=== PATIENT | female | born 1960 ===

== ENCOUNTER 2016-08-14 09:26 | Emergency (ER) | payer MEDICAID ==
[2016-08-14 09:32] VITALS: BMI 41.5
[2016-08-14 09:33] VITALS: RESP 18; TEMP 97.8; O2SAT 98
[2016-08-14] MEDS ORDERED: Lidocaine 2% Jelly (Uro-Jet) TOP ONE (10:02)
[2016-08-14] MEDS ORDERED: Lidocaine 2% Jelly (Uro-Jet) ONE (10:06)
--- NOTE | 2016-08-14 10:14 | C.PDOC ---
History Of Present Illness PERSIST HEMORRHOID PAIN X 1 MO. NO RELIEF W PROCTOSOL. DENIES CONSTIPATION BUT NOT USING LAXATIVE. NO BLEEDING, OTHER ASSOC SX EXAM MILD DIST NONTOXIC RECTAL +HEMORRHOIDS NONTHROMBOSED. NO EXCORIATION, ACTIVE BLEED MDM DILTIAZEM OINTMENT 5% CALLED IN TO [facility] ADVISED NEED Time Seen by Provider: 08/14/16 09:48 Chief Complaint (Nursing): Abnormal Skin Integrity History Per: Patient History/Exam Limitations: no limitations Onset/Duration Of Symptoms: Days Current Symptoms Are (Timing): Still Present Recent travel outside of the [place]: No Past Medical History Reviewed: Historical Data, Nursing Documentation, Vital Signs Vital Signs: Last Vital Signs Temp 97.8 F 08/14/16 09:32 Pulse 79 08/14/16 09:32 Resp 18 08/14/16 09:32 BP 121/82 08/14/16 09:32 Pulse Ox 98 08/14/16 10:17 - Medical History PMH: HTN Surgical History: Cholecystectomy Family History: States: Unknown Family Hx - Social History Hx Tobacco Use: Yes Hx Alcohol Use: No Hx Substance Use: No - Immunization History Hx Tetanus Toxoid Vaccination: No Hx Influenza Vaccination: No Hx Pneumococcal Vaccination: No Review Of Systems Except As Marked, All Systems Reviewed And Found Negative. Constitutional: Negative for: Fever, Chills Gastrointestinal: Positive for: Other ( +HEMORRHOIDS ). Negative for: Nausea, Vomiting, Abdominal Pain, Diarrhea, Constipation Skin: Negative for: Rash Physical Exam - Physical Exam Appears: Non-toxic, Other (MILD DISTRESS) Skin: Warm, Dry Head: Atraumatic, Normacephalic Chest: Symmetrical Cardiovascular: Rhythm Regular Respiratory: Normal Breath Sounds, No Rales, No Rhonchi, No Wheezing Gastrointestinal/Abdominal: Soft Rectal: Other (RECTAL +HEMORRHOIDS NONTHROMBOSED. NO EXCORIATION, ACTIVE BLEED) Back: Normal Inspection Extremity: Normal ROM Neurological/Psych: Oriented x3, Normal Speech, Normal Cognition ED Course And Treatment O2 Sat by Pulse Oximetry: 98 (RA) Pulse Ox Interpretation: Normal Medical Decision Making Medical Decision Making: DILTIAZEM OINTMENT 5% CALLED IN TO [facility]), ADVISED NEED Disposition Counseled Patient/Family Regarding: Diagnosis, Need For Followup, Rx Given - Disposition Referrals: Israel Amor MD [Primary Care Provider] - Jagdish Elder MD [Staff Provider] - Disposition: HOME/ ROUTINE Disposition Time: 10:16 Condition: IMPROVED Additional Instructions: USE OINTMENT PRESCRIBED. SEE YOUR PMD AND/OR SURGEON FOR FURTHER EVALUATION. Instructions: Hemorrhoids (ED) Forms: Work Excuse - Clinical Impression Clinical Impression: Hemorrhoid - Scribe Statement The provider has reviewed the documentation as recorded by the Pratima Nguyen Provider Attestation: All medical record entries made by the Pratima were at my direction and personally dictated by me. I have reviewed the chart and agree that the record accurately reflects my personal performance of the history, physical exam, medical decision making, and the department course for this patient. I have also personally directed, reviewed, and agree with the discharge instructions and disposition.
[2016-08-14 10:47] VITALS: BP 124/75; PULSE 72
== END 2016-08-14 10:47 | disposition home or self-care (01) ==
LOC: SUPCPDRO 09:26 → C.ER 09:26
DX: K64.9 Unspecified hemorrhoids (principal)

== ENCOUNTER 2016-11-26 07:27 | Day surgery (SDC) | payer MEDICAID ==
[2016-11-26 07:49] VITALS: BMI 43.0
--- NOTE | 2016-11-26 09:04 | CP.SDSHP ---
Same Day Surgery H & P - History Proposed Procedure: Colonoscopy Pre-Op Diagnosis: Rectal discomfort - Previous Medical/Surgical History Endocrine/Metabolic: Obesity - Allergies Allergies: Allergies No Known Allergies Allergy (Verified 04/14/16 13:21) - Physical Exam General Appearance: nl Vital Signs: Vital Signs 11/26/16 07:55 Temperature 97.8 F Pulse Rate 61 Respiratory 16 Rate Blood Pressure 128/73 O2 Sat by Pulse 97 Oximetry Mental Status: Alert & Oriented x3 Neuro: WNL Heart: WNL Lungs: WNL GI: WNL - {Optional Preform as Required} Abdomen: WNL Rectal: WNL - Impression Impression: rectal discomfort Pt. Evaluated Today:Candidate for Anesthesia & Procedure: Yes - Date & Time Date: 11/26/16 Time: 09:04 Short Stay Discharge - Short Stay Discharge Admitting Diagnosis/Reason for Visit: OTHER SPECIFIED DISEASES OF ANUS AND RECTUM Disposition: HOME/ ROUTINE
[2016-11-26] MEDS ORDERED: Propofol 10 mg/ml Inj (20 ML) ONE (09:11)
[2016-11-26] MEDS ORDERED: Midazolam 2 MG/2 ML VIAL ONE (09:11)
[2016-11-26] MEDS ORDERED: Lactated Ringer's 500 ML IV ONE (09:12)
[2016-11-26] MEDS ORDERED: Lactated Ringer's 500 ML IV SCH (09:30)
[2016-11-26 10:20] VITALS: RESP 18
[2016-11-26 10:29] VITALS: BP 137/68; PULSE 63; TEMP 98.1; O2SAT 98
== END 2016-11-26 10:43 | disposition home or self-care (01) ==
LOC: C.ENDO 07:27
PROVIDERS: ATTEND Internal Medicine
DX: D12.5 Benign neoplasm of sigmoid colon (principal); E66.9 Obesity, unspecified; K57.30 Diverticulosis of large intestine without perforation or abscess without bleeding; K64.8 Other hemorrhoids; Z68.41 Body mass index [BMI] 40.0-44.9, adult
CPT/HCPCS: 45388; 88305; J2250; J2704; J7120